=== PATIENT | male | born 1980 | race African-American/Black ===

== ENCOUNTER 2017-09-12 18:37 | Emergency (ER) | payer MEDICAID, SELFPAY ==
[2017-09-12 18:38] VITALS: BP 144/99; PULSE 91; RESP 19; TEMP 37.1; O2SAT 100; BMI 27.3
--- NOTE | 2017-09-12 19:18 | RAD_ITS ---
STUDY: X-RAY - RIGHT KNEE REASON FOR EXAM: Male, 37 years old. Fell yesterday. TECHNIQUE: 3 view(s) of the knee. COMPARISON: July 31, 2014 FINDINGS: There are stable postsurgical changes within the medial distal femur. Normal visualized proximal tibia and fibula. Normal proximal tibiofibular articulation. There is mild degenerative arthrosis of the medial femorotibial compartment. Normal lateral femorotibial compartment. Normal patellofemoral articulation. There is a joint effusion. The soft tissue structures are unremarkable. RAD/Knee 3 Views IMPRESSION: Joint effusion. Mild degenerative changes. Electronically Signed: Muna Del Toro MD at 20:23 EDT Tel , Service support ,
--- NOTE | 2017-09-12 20:28 | ED.DCSUM_ITS ---
- ER Visit Summary Date of Service: 09/12/17 Chief Complaint: [Injury right knee] History of Present Illness: The patient is a 37 M [presents to the emergency department complaint of injury to his right knee that occurred yesterday. Patient states that he jumped over a fence and came down awkwardly on his right leg and he felt a pop in his knee. Patient can walk initially with today having more discomfort and harder time walking. Patient has had prior surgery on his right knee. Patient does have a history of HIV.] Physical Examination: [HEENT-PERRLA, EOMI. Cranial nerves II through XII grossly intact. TMs clear. Mucous membranes moist. No adenopathy. Cardiovascular-regular rate and rhythm without murmur or ectopy Lungs-clear to auscultation, chest wall stable without crepitus or subcu emphysema Abdomen-normoactive bowel sounds, soft, nontender, no rebound or rigidity, no peritoneal signs. Extremities-intact ?4, normal range of motion, normal pulses, atraumatic]. Right knee-no significant effusion noted. Pain with range of motion in flexion. Ligamentously stable. Patient does have pain with varus and valgus stress. Patient has tenderness over the medial joint line. Neurovascular intact distally. Test Results: [X-rays of the right knee obtained showed a small effusion otherwise nothing significant.] Emergency Department Course and Treatment: [Patient will be given a knee immobilizer and crutches] Treatment Plan: [Patient was given a prescription for [place] for pain he will be given orthopedic follow-up with Dr. Sawyer] Disposition: [Discharged home in stable condition] Impression: [Right knee sprain-possible internal derangement] This note was generated with [employer] dictation software. It may contain incorrect words, spelling, and punctuation that were not noted in review of the chart prior to signing ED Disposition - Plan for ED Patient: Chief Complaint: Lower Extremity Injury Referrals: NOT,DEFINED [Primary Care Provider] -
--- NOTE | 2017-09-12 20:29 | DCINST.ED_ITS ---
ED Disposition - Plan for ED Patient: Chief Complaint: Lower Extremity Injury Instructions: ED Sprain Knee, ED Meniscal Injury Knee Poss Prescriptions: Hydrocodone/Acetaminophen [[place] 5-325 Tablet] 1 - 2 ea PO 4X/DAY PRN PRN 3 Days #12 tab PRN Reason: Pain Referrals: Lizzette Acevedo DO [STAFF PHYSICIAN] - 3-5 Days
[2017-09-12 20:52] VITALS: BP 120/78; PULSE 72; RESP 16; O2SAT 100
== END 2017-09-12 20:53 | disposition home or self-care (01) ==
PROVIDERS: Emergency Provider Emergency Medicine
DX: S83.91XA Sprain of unspecified site of right knee, initial encounter (principal); X50.1XXA Overexertion from prolonged static or awkward postures, initial encounter; Y93.39 Activity, other involving climbing, rappelling and jumping off; Y92.9 Unspecified place or not applicable; B20 Human immunodeficiency virus [HIV] disease; Z79.899 Other long term (current) drug therapy; Z72.0 Tobacco use
CPT/HCPCS: 73562; 99284